=== PATIENT | female | born 1955 | race Caucasian/White ===

== ENCOUNTER → 2017-04-15 | Outpatient (REF) | payer BC ==
[~2017-04-15] MED LIST: LISI10TA4 PO; MULT1TAB10 PO
[2017-04-15 11:54] LABS: BASO # 0.1 K/mm3 (0.0-0.2); BASO % 0.8 % (0.0-1.0); EOS # 0.2 K/mm3 (0.0-0.50); EOS % 3.2 % (0.0-3.0); LARGE UNSTAINED CELL # 0.1 K/mm3 (0.0-0.4); LYMPH # 1.5 K/mm3 (1.5-4.5); LYMPH % 19.5 % (24.0-44.0); MEAN CORPUSCULAR HEMOGLOBIN 28.3 pg (27.0-33.0); MEAN CORPUSCULAR HGB CONC 32.6 g/dl (32.0-36.5); MEAN CORPUSCULAR VOLUME 86.8 fl (80.0-96.0); MONO # 0.4 K/mm3 (0.0-0.8); MONO % 5.9 % (0.0-5.0); NEUTROPHILS # 5.2 K/mm3 (1.8-7.7); NEUTROPHILS % 69.6 % (36.0-66.0); PLATELET COUNT, AUTOMATED 296 k/mm3 (150-450); RED CELL DISTRIBUTION WIDTH 13.6 % (11.5-14.5); WHITE BLOOD COUNT 7.4 K/mm3 (4.0-10.0)
[2017-04-15 12:23] LABS: ALBUMIN 3.5 GM/DL (3.2-5.2); ALBUMIN/GLOBULIN RATIO 1.09 (1.00-1.93); ALKALINE PHOSPHATASE 119 U/L (45-117); ALT/SGPT 17 U/L (12-78); ANION GAP 6 MEQ/L (8-16); AST/SGOT 12 U/L (15-37); BILIRUBIN,TOTAL 0.5 MG/DL (0.2-1.0); BLOOD UREA NITROGEN 21 MG/DL (7-18); CALCIUM LEVEL 8.9 MG/DL (8.8-10.2); CARBON DIOXIDE LEVEL 28 MEQ/L (21-32); CHLORIDE LEVEL 104 MEQ/L (98-107); CHOLESTEROL LEVEL 176 MG/DL (<200); CREATININE FOR GFR 0.68 MG/DL (0.55-1.02); FREE T4 1.35 NG/DL (0.76-1.46); GLOMERULAR FILTRATION RATE > 60.0 (>45); GLUCOSE, FASTING 83 MG/DL (80-110); POTASSIUM SERUM 4.8 MEQ/L (3.5-5.1); SODIUM LEVEL 138 MEQ/L (136-145); TOTAL PROTEIN 6.7 GM/DL (6.4-8.2); TRIGLYCERIDES LEVEL 47 MG/DL (<150)
== END ==
LOC: M SFHCADAM 07:46
PROVIDERS: ATTEND Family Medicine
DX: R60.9 Edema, unspecified (principal); Z00.00 Encounter for general adult medical examination without abnormal findings; E66.09 Other obesity due to excess calories

== ENCOUNTER → 2017-04-24 | Outpatient (CLI) | payer BC ==
--- NOTE | 2017-04-25 08:12 | REP ---
Clinical: Venous insufficiency with right lower extremity nonhealing ulcer . Technique: Dewey scale and color Doppler evaluation using linear high frequency transducer with reflux evaluation. Findings: Ultrasound examination of the right lower extremity deep venous structures from the common femoral vein to the popliteal vein demonstrates normal compressibility flow and wave patterns in response to respiration and augmentation. There is no evidence for deep venous thrombosis. Severe reflux is identified through the greater saphenous vein (GSV) from the level of the groin to the mid calf with multiple collateral perforating vessels including involving the distal femoral vein to distal greater saphenous vein. Reflux is also identified through the anterior accessory vein and common femoral vein extending along the posterior aspect of the thigh. Proximal GSV dilated to 15 mm with reflux duration 3.3 seconds. Mid GSV dilated to 9.8 mm with reflux duration 3.5 seconds. Distal GSV dilated to 11.0 mm with reflux duration of 5.1 seconds. Reflux noted involving the common femoral vein, anterior accessory vein, superficial femoral vein. Impression: No evidence for deep venous thrombosis. Significant reflux noted through the greater saphenous vein, as well as via anterior accessory vein, common femoral vein and superficial femoral veins. Signed by Dane Egan MD 04/25/2017 05:18 A
== END ==
LOC: M RAD 12:41
PROVIDERS: ATTEND Family Medicine
DX: L97.919 Non-pressure chronic ulcer of unspecified part of right lower leg with unspecified severity (principal); Z12.31 Encounter for screening mammogram for malignant neoplasm of breast

== ENCOUNTER → 2017-04-28 | Outpatient (CLI) | payer BC ==
--- NOTE | 2017-04-28 14:51 | REP ---
LEFT LOWER EXTREMITY DUPLEX DOPPLER VENOUS ULTRASOUND WITH EVALUATION FOR VENOUS REFLUX: Real-time compression and duplex Doppler interrogation of the left lower extremity deep vein system is performed. The left common femoral, superficial femoral and popliteal veins are fully compressible with transducer pressure and demonstrate normal spontaneous and phasic flow without evidence of deep venous thrombosis. Evaluation for venous reflux demonstrates reflux in the common femoral vein. There is an anterior accessory greater saphenous vein measuring 9 mm in diameter with reflux present with the duration of 1.4 seconds. There is reflux in the greater saphenous vein at the saphenofemoral junction with that vessel measuring 7 mm, duration of the reflux 7.2 cm. There is reflux in the greater saphenous vein at the mid thigh level where the vein measures 4 mm in diameter, duration of the reflux 6.9 seconds. There is reflux in the greater saphenous vein at the knee with the vessel measuring 3 mm in diameter, duration of the reflux 5.9 seconds. There is no reflux in the remaining superficial femoral or popliteal vein and no reflux in the lesser saphenous vein which measures 4 mm. Signed by Chip Dewey MD 04/29/2017 08:42 A
== END ==
LOC: M RAD 12:46
PROVIDERS: ATTEND Family Medicine
DX: L97.919 Non-pressure chronic ulcer of unspecified part of right lower leg with unspecified severity (principal); Z12.31 Encounter for screening mammogram for malignant neoplasm of breast

== ENCOUNTER → 2017-06-11 | Outpatient (CLI) | payer BC ==
[2017-06-11 12:21] LABS: MEAN CORPUSCULAR HEMOGLOBIN 28.5 pg (27.0-33.0); MEAN CORPUSCULAR HGB CONC 33.6 g/dl (32.0-36.5); MEAN CORPUSCULAR VOLUME 84.8 fl (80.0-96.0); RED CELL DISTRIBUTION WIDTH 13.9 % (11.5-14.5)
[2017-06-11 12:29] LABS: ANION GAP 7 MEQ/L (8-16); BLOOD UREA NITROGEN 15 MG/DL (7-18); CALCIUM LEVEL 8.9 MG/DL (8.8-10.2); CARBON DIOXIDE LEVEL 29 MEQ/L (21-32); CHLORIDE LEVEL 107 MEQ/L (98-107); CREATININE FOR GFR 0.68 MG/DL (0.55-1.02); GLOMERULAR FILTRATION RATE > 60.0 (>45); GLUCOSE, FASTING 93 MG/DL (80-110); POTASSIUM SERUM 4.6 MEQ/L (3.5-5.1); SODIUM LEVEL 143 MEQ/L (136-145)
== END ==
LOC: M LAB 11:20
PROVIDERS: ATTEND Surgery Vascular Surgery
DX: I70.239 Atherosclerosis of native arteries of right leg with ulceration of unspecified site (principal)

== ENCOUNTER → 2017-07-10 | Outpatient (CLI) | payer BC ==
--- NOTE | 2017-07-10 16:20 | REP ---
RIGHT LOWER EXTREMITY DOPPLER VENOUS ULTRASOUND: 07/10/2017: Comparison 04/24/2017. Clinical history: Venous insufficiency, postsurgical. Findings: Standard duplex techniques were utilized to evaluate the deep venous system and superficial vessels on the right lower extremity. There is a 2 x 1.1 x 0.8 cm reactive lymph node in the inguinal region. The deep venous system from the groin including the common femoral, superficial femoral and popliteal veins of the deep system were all fully compressible throughout their course with respiratory variation and augmented flow, color flow is patent throughout the greater saphenous vein is clotted from its junction with the common femoral vein to the knee which is expected post procedure. No thrombus extending into the deep system from the greater saphenous vein. Impression 1. No ultrasound evidence of DVT in the right lower extremity. 2. Greater saphenous vein is not thrombosed from the knee to the junction with the common femoral vein in the groin. Signed by Shashank Prabhakar MD 07/10/2017 04:28 P
== END ==
LOC: M RAD 08:17
PROVIDERS: ATTEND Surgery Vascular Surgery
DX: I87.2 Venous insufficiency (chronic) (peripheral) (principal)

== ENCOUNTER 2017-08-07 09:53 | Day surgery (SDC) | payer BC ==
[~2017-08-07] VITALS: Ht 162.6 cm; Wt 128.4 kg
[2017-08-07] MEDS ORDERED: LR 1,000 ML IV SCH ×2 (10:15→12:30)
[2017-08-07] MEDS ORDERED: LIDOCAINE 1% SDV 5 ML VIAL SC ONE (10:15)
[2017-08-07] MEDS ORDERED: LIDOCAINE W/EPINEPHRINE 1% 20ML VIAL As Ordered ONE (10:33)
[2017-08-07] MEDS ORDERED: LIDOCAINE 1% SDV INJ 30 ML VIAL As Ordered ONE (10:33)
[2017-08-07] MEDS ORDERED: ePHEDrine SULFATE 25 MG/5 ML(5MG/ML) SYRINGE As Ordered ONE (11:37)
[2017-08-07] MEDS ORDERED: PROPOFOL 500 MG/50 ML VIAL As Ordered ONE (11:37)
[2017-08-07] MEDS ORDERED: ONDANSETRON 4MG/2ML VIAL (J2405) As Ordered ONE ×2 (11:37→11:51)
[2017-08-07] MEDS ORDERED: MIDAZOLAM INJ 2 MG/2 ML VIAL (J2250) As Ordered ONE (11:37)
[2017-08-07] MEDS ORDERED: fentaNYL 100 MCG/2 ML INJECTION (J3010) As Ordered ONE (11:37)
[2017-08-07] MEDS ORDERED: dexameTHASONE 4 MG/ML 1ML VIAL (J1100) As Ordered ONE (11:51)
[2017-08-07] MEDS ORDERED: KETOROLAC 60 MG/2 ML VIAL (J1885) As Ordered ONE (11:51)
[2017-08-07] MEDS ORDERED: ONDANSETRON 4MG/2ML VIAL (J2405) IV PRN (12:30)
[2017-08-07] MEDS: PERCOCET 5MG/325MG TAB PO PRN ×2 (13:17→13:55)
[2017-08-07] MEDS ORDERED: PERCOCET 5MG/325MG TAB As Ordered ONE (13:51)
[2017-08-07 14:40] VITALS: BP 145/83
--- NOTE | 2017-09-11 14:17 | RO ---
DATE OF PROCEDURE: 08/07/2017 PREPROCEDURE DIAGNOSIS: Bilateral lower extremity swelling, pain and venous cellular cyst in the greater saphenous vein. POSTPROCEDURE DIAGNOSIS: Bilateral lower extremity swelling, pain and venous valvular insufficiency in the greater saphenous vein. PROCEDURE: Left greater saphenous vein radiofrequency ablation. SURGEON: Dr. Bree Malcolm. ENGRAVER WOOD: None. ANESTHESIA: Local monitored anesthesia care (MAC). ESTIMATED BLOOD LOSS: 50 mL IV FLUIDS: 700 mL. COMPLICATIONS: None. DRAINS: None. SPECIMENS: None. IMPLANTS: None. INDICATION: The patient is a 62-year-old female with bilateral lower extremity swelling, pain and venous valvular insufficiency in the greater saphenous vein. The patient will undergo a left greater saphenous vein radiofrequency ablation. Risks benefits and alternative treatment options were discussed with the patient. DESCRIPTION OF PROCEDURE: The patient was taken to the operating room and placed supine on the operating table. The left lower extremity was prepped and draped in the standard surgical fashion. Ultrasound was used to guide the cannulation of the left greater saphenous vein and below knee region. Afterwards the sheath was placed and a catheter placed 2 cm distal to the saphenofemoral junction after which was injected circumferentially around the greater saphenous vein and then the greater saphenous vein was ablated from 2 cm distal to the saphenofemoral junction to the entry site in the below knee region. The catheters and wires were removed. Dressings were then applied. The patient tolerated the procedure well. All instruments, sponge and needle counts were correct at the end of the case. There were no complications. Dr. Malcolm was present for and directed the entire case. The patient was transferred to the recovery room and subsequently discharged in stable condition.
== END 2017-08-07 14:42 | disposition home or self-care (01) ==
LOC: M SDC 09:53
PROVIDERS: ATTEND Surgery Vascular Surgery
DX: I87.2 Venous insufficiency (chronic) (peripheral) (principal); I83.811 Varicose veins of right lower extremity with pain; R60.0 Localized edema; I10 Essential (primary) hypertension; Z79.899 Other long term (current) drug therapy; Z78.0 Asymptomatic menopausal state
CPT/HCPCS: 36475; J1100; J1885; J2250; J2405; J3010

== ENCOUNTER → 2017-08-18 | Outpatient (CLI) | payer BC ==
--- NOTE | 2017-08-18 09:18 | REP ---
Clinical: Left extremity pain status post ablation . Technique: Dewey scale and color Doppler evaluation using linear high frequency transducer. Findings: Ultrasound examination of the left lower extremity deep venous structures from the common femoral vein to the popliteal vein demonstrates normal compressibility flow and wave patterns in response to respiration and augmentation. There is no evidence for deep venous thrombosis. Occlusive thrombus in the greater saphenous vein beginning approximately 1.2 cm from the greater saphenous vein/common femoral vein junction is consistent with the history of prior ablation therapy. Anterior accessory greater saphenous vein appears patent. Impression: No evidence for deep venous thrombosis. Signed by Dane Egan MD 08/18/2017 09:10 A
== END ==
LOC: M RAD 08:10
PROVIDERS: ATTEND Surgery Vascular Surgery
DX: I87.393 Chronic venous hypertension (idiopathic) with other complications of bilateral lower extremity (principal)

== ENCOUNTER 2021-04-02 04:52 | Emergency (ER) | payer BC ==
[~2021-04-02] VITALS: Ht 162.6 cm; Wt 138.4 kg
[~2021-04-02 04:52] MED LIST changes: +LISI10TA22 PO; -LISI10TA4 PO
[2021-04-02] MEDS ORDERED: MORPHINE 2 MG/ML 1ML VIAL (J2270) As Ordered ONE (05:49)
[2021-04-02] MEDS ORDERED: MORPHINE 2 MG/ML 1ML VIAL (J2270) IV ONE (05:55)
[2021-04-02] MEDS ORDERED: NS 1,000 ML IV SCH (06:00)
[2021-04-02] MEDS ORDERED: KETAMINE HCL 200 MG/20 ML VIAL IV ONE (06:00)
[2021-04-02] MEDS ORDERED: propofoL 200 MG/20 ML VIAL IV.PROC PRN (06:00)
--- NOTE | 2021-04-02 07:14 | REPVR ---
PROCEDURE INFORMATION: Exam: XR Right Humerus Exam date and time: 04/02/2021 5:39 AM Age: 66 years old Clinical indication: Pain; Shoulder; Right; Additional info: Injury TECHNIQUE: Imaging protocol: XR Right humerus. Views: 2 or more views. COMPARISON: No relevant prior studies available. FINDINGS: The dislocation of the right shoulder relative to the glenoid likely anterior. No acute fracture within the right clavicle, scapula or right humerus. IMPRESSION: Right shoulder anterior dislocation. No definite evidence of acute fracture within the right shoulder. Electronically signed by: Demetrio Barber On 04/02/2021 07:14:04 AM
--- NOTE | 2021-04-02 07:15 | REPVR ---
PROCEDURE INFORMATION: Exam: XR Right Shoulder Exam date and time: 04/02/2021 5:39 AM Age: 66 years old Clinical indication: Pain; Shoulder; Right; Additional info: Injury TECHNIQUE: Imaging protocol: XR Right shoulder. Views: 2 or more views. COMPARISON: No relevant prior studies available. FINDINGS: Anterior dislocation of the right humeral head relative to the glenoid. No acute fracture within the right clavicle, scapula or proximal humerus. IMPRESSION: Anterior dislocation of the right humeral head relative to the glenoid. No evidence of acute fracture. Electronically signed by: Demetrio Barber On 04/02/2021 07:14:59 AM
--- NOTE | 2021-04-02 07:16 | REPVR ---
PROCEDURE INFORMATION: Exam: XR Right Shoulder Exam date and time: 04/02/2021 6:25 AM Age: 66 years old Clinical indication: Pain; Shoulder; Right; Additional info: Dislocation TECHNIQUE: Imaging protocol: XR Right shoulder. Views: 1 view. COMPARISON: CR Shoulder, complete RIGHT 04/02/2021 5:15 AM FINDINGS: Single frontal view demonstrates interval reduction of previously seen anterior right shoulder dislocation. No definite evidence of fracture within the right clavicle, scapula or proximal humerus. IMPRESSION: Interval reduction of previously seen anterior right shoulder dislocation. Electronically signed by: Demetrio Barber On 04/02/2021 07:15:46 AM
[2021-04-02 07:59] VITALS: BP 147/74
== END 2021-04-02 08:21 | disposition home or self-care (01) ==
LOC: M ED 04:52
DX: S43.004A Unspecified dislocation of right shoulder joint, initial encounter (principal); W01.0XXA Fall on same level from slipping, tripping and stumbling without subsequent striking against object, initial encounter; Y92.018 Other place in single-family (private) house as the place of occurrence of the external cause
CPT/HCPCS: 23650; 73020; 73030; 73060; 93041; 94760; 96361; 96374; 99152; 99153; 99285; J2270

== ENCOUNTER → 2021-04-03 | Outpatient (CLI) | payer BC ==
--- NOTE | 2021-04-03 09:02 | REP ---
INDICATION: OTHER INSTABILITY. COMPARISON: 04/02/2021 TECHNIQUE: Axillary view of the right shoulder FINDINGS: Cortical irregularity and subtle blunting along the posterior aspect of the humeral head suggests prior Hill-Sachs deformity. The acromioclavicular joint and glenoid appear intact and relatively age-appropriate. IMPRESSION: Findings suggest prior Hill-Sachs deformity to the humeral head. <Electronically signed by Dane Egan > 04/03/21 [id number]
== END ==
LOC: M SOG 08:26
PROVIDERS: ATTEND Orthopaedic Surgery Sports Medicine
DX: M25.311 Other instability, right shoulder (principal)

== ENCOUNTER → 2021-05-15 | Outpatient (CLI) | payer BC ==
--- NOTE | 2021-05-15 09:29 | REP ---
INDICATION: SHOULDER INSTABILITY. COMPARISON: None. TECHNIQUE: Neutral, internal rotation, external rotation, axillary and Y-view of the right shoulder. FINDINGS: Age-related degenerative changes include subtle cortical irregularity and spurring at the acromioclavicular joint/acromion process as well as heterogeneous blunting to the calcified glenoid rim and flattening along the posterior margin of the humeral head which may reflect prior dislocation and Hill-Sachs deformity. The subacromial space appears somewhat decreased to on internal and external rotation views. Approximately 6.8 mm no periarticular calcifications or loose bodies identified. IMPRESSION: Degenerative changes as noted above. <Electronically signed by Dane Egan > 05/15/21 [id number]
== END ==
LOC: M SOG 08:57
PROVIDERS: ATTEND Orthopaedic Surgery Sports Medicine
DX: M25.311 Other instability, right shoulder (principal)

== ENCOUNTER → 2021-05-18 | Outpatient (CLI) | payer BC ==
--- NOTE | 2021-05-18 15:10 | REP ---
INDICATION: MASSIVE RCT. Patient relates a history of a fall 1 month ago. First time dislocation 6 weeks ago, now with pseudo paralysis of the shoulder. Assess for massive rotator cuff tear. COMPARISON: Comparison radiographs of the right shoulder are from May 15, 2021 and April 03, 2021. TECHNIQUE: Axial, oblique coronal, and oblique sagittal imaging planes utilized. T1 and T2 weighted scans are included with without fat saturation in the usual fashion. FINDINGS: There is a moderate to large glenohumeral joint effusion visible. There is a complete full-thickness retracted supraspinatus cuff tear with obliteration of the subacromial space on oblique coronal T1 weighted scans. There is mild inferolateral spurring of the acromion process. AC joint osteoarthritis and some AC joint fluid are seen. On axial 3D ROACH images, there is a low signal intensity structure in anterior and superficial to the biceps tendon/bony bicipital groove consistent with a 8 mm calcific deposit. There is tendinosis in the subscapularis tendon. Infraspinatus tendon appears intact. Biceps tendon effusion is seen. The tendon itself appears intact. There is less than optimal visualization of the superior labral cartilage. No posterior labral tear is seen. Question anterior labral cartilage tear. IMPRESSION: There is a somewhat retracted complete and large full-thickness supraspinatus cuff tear with resultant narrowing of the subacromial space. A moderate to large glenohumeral joint effusion is seen. Question anterior labral tear. Periarticular soft tissue calcifications suspected. AC joint osteoarthritis. <Electronically signed by Bharath Jackson > 05/18/21 [id number]
== END ==
LOC: M PLARAD 08:27
PROVIDERS: ATTEND Orthopaedic Surgery Sports Medicine
DX: M75.121 Complete rotator cuff tear or rupture of right shoulder, not specified as traumatic (principal); M25.311 Other instability, right shoulder

== ENCOUNTER → 2021-08-02 | Outpatient (REF) | payer BC ==
[2021-08-02 13:02] LABS: BASO # 0.1 10^3/uL (0.0-0.2); BASO % 0.7 % (0.0-1.0); EOS # 0.3 10^3/uL (0.0-0.5); EOS % 3.5 % (0.0-3.0); HEMOGLOBIN 13.2 g/dl (12.0-15.5); LYMPH # 1.8 10^3/uL (1.5-5.0); LYMPH % 24.7 % (24.0-44.0); MEAN CORPUSCULAR HEMOGLOBIN 26.6 pg (27.0-33.0); MEAN CORPUSCULAR HGB CONC 30.7 g/dl (32.0-36.5); MEAN CORPUSCULAR VOLUME 86.7 fl (80.0-96.0); MONO # 0.7 10^3/uL (0.0-0.8); MONO % 9.3 % (2.0-8.0); NEUTROPHILS # 4.4 10^3/uL (1.5-8.5); NEUTROPHILS % 61.5 % (36.0-66.0); PLATELET COUNT, AUTOMATED 303 10^3/uL (150-450); RED BLOOD COUNT 4.96 10^6/uL (4.00-5.40); WHITE BLOOD COUNT 7.1 10^3/uL (4.0-10.0)
[2021-08-02 14:27] LABS: ALBUMIN 3.2 GM/DL (3.2-5.2); ALT/SGPT 15 U/L (12-78); BILIRUBIN,TOTAL 0.5 MG/DL (0.2-1.0); BLOOD UREA NITROGEN 16 MG/DL (7-18); CALCIUM LEVEL 9.2 MG/DL (8.8-10.2); CARBON DIOXIDE LEVEL 29 MEQ/L (21-32); CHLORIDE LEVEL 108 MEQ/L (98-107); CHOLESTEROL LEVEL 204 MG/DL (<200); CREATININE FOR GFR 0.81 MG/DL (0.55-1.30); FREE T4 1.28 NG/DL (0.76-1.46); GLOMERULAR FILTRATION RATE > 60.0 (>45); GLUCOSE, FASTING 88 MG/DL (70-100); HDL CHOLESTEROL 80 MG/DL (>40); LDL CHOLESTEROL 113 MG/DL (<100); NON-HDL-C 124 MG/DL; POTASSIUM SERUM 4.9 MEQ/L (3.5-5.1); SODIUM LEVEL 142 MEQ/L (136-145); TOTAL PROTEIN 6.5 GM/DL (6.4-8.2); TRIGLYCERIDES LEVEL 55 MG/DL (<150)
== END ==
LOC: M SFHCADAM 07:58
PROVIDERS: ATTEND Family Medicine
DX: Z00.00 Encounter for general adult medical examination without abnormal findings (principal)

== ENCOUNTER → 2022-06-28 | Outpatient (CLI) | payer BC | LOC: M WHC 15:34 | PROVIDERS: ATTEND Family Medicine | DX: Z12.31 Encounter for screening mammogram for malignant neoplasm of breast (principal) ==

== ENCOUNTER → 2022-10-02 | Outpatient (REF) | payer BC | LOC: M SFHCADAM 13:00 | PROVIDERS: ATTEND Family Medicine | DX: R09.81 Nasal congestion (principal) ==

== ENCOUNTER → 2023-03-04 | Outpatient (REF) | payer BC ==
[2023-03-04 13:48] LABS: BASO # 0.1 10^3/uL (0.0-0.2); EOS # 0.2 10^3/uL (0.0-0.5); EOS % 3.6 % (0.0-3.0); HEMATOCRIT 41.7 % (36.0-47.0); HEMOGLOBIN 12.5 g/dl (12.0-15.5); LYMPH # 1.8 10^3/uL (1.5-5.0); LYMPH % 30.4 % (24.0-44.0); MEAN CORPUSCULAR HEMOGLOBIN 26.8 pg (27.0-33.0); MEAN CORPUSCULAR VOLUME 89.5 fl (80.0-96.0); MONO # 0.6 10^3/uL (0.0-0.8); MONO % 9.5 % (2.0-8.0); NEUTROPHILS # 3.2 10^3/uL (1.5-8.5); NEUTROPHILS % 55.2 % (36.0-66.0); PLATELET COUNT, AUTOMATED 334 10^3/uL (150-450); RED BLOOD COUNT 4.66 10^6/uL (4.00-5.40); WHITE BLOOD COUNT 5.8 10^3/uL (4.0-10.0)
[2023-03-04 13:50] LABS: FREE T4 1.06 NG/DL (0.89-1.76); THYROID STIMULATING HORMONE 1.837 uIU/ML (0.55-4.78)
[2023-03-04 13:51] LABS: ALBUMIN 3.2 G/DL (3.2-5.2); ALKALINE PHOSPHATASE 114 U/L (46-116); ALT/SGPT 12 U/L (7.0-40); AST/SGOT 12 U/L (<34); BILIRUBIN,TOTAL 0.4 MG/DL (0.3-1.2); BLOOD UREA NITROGEN 18 MG/DL (9-23); CALCIUM LEVEL 8.3 MG/DL (8.3-10.6); CARBON DIOXIDE LEVEL 31 MMOL/L (20-31); CHLORIDE LEVEL 106 MMOL/L (98-107); CHOLESTEROL LEVEL 176 MG/DL (<200); CHOLESTEROL RISK RATIO 2.43 (<5); CREATININE FOR GFR 0.73 MG/DL (0.55-1.30); GLOMERULAR FILTRATION RATE > 60.0 (>45); GLUCOSE, FASTING 86 MG/DL (74-106); HDL CHOLESTEROL 72.4 MG/DL (>40); LDL CHOLESTEROL 91.4 MG/DL (<100); NON-HDL-C 103.6 MG/DL; POTASSIUM SERUM 4.5 MMOL/L (3.5-5.1); SODIUM LEVEL 141 MMOL/L (136-145); TOTAL PROTEIN 5.9 G/DL (5.7-8.2); TRIGLYCERIDES LEVEL 61 MG/DL (<150)
== END ==
LOC: M SFHCADAM 07:33
PROVIDERS: ATTEND Family Medicine
DX: Z00.00 Encounter for general adult medical examination without abnormal findings (principal)

== ENCOUNTER → 2023-03-12 | Outpatient (CLI) | payer BC | LOC: M WHC 16:42 | PROVIDERS: ATTEND Family Medicine | DX: Z53.9 Procedure and treatment not carried out, unspecified reason (principal); Z12.31 Encounter for screening mammogram for malignant neoplasm of breast ==

== ENCOUNTER → 2023-03-13 | Outpatient (CLI) | payer BC | LOC: M ADAMS 14:59 | PROVIDERS: ATTEND Family Medicine | DX: R05.2 Subacute cough (principal); J98.11 Atelectasis; K44.9 Diaphragmatic hernia without obstruction or gangrene ==

== ENCOUNTER → 2023-07-18 | Outpatient (CLI) | payer BC | LOC: M WHC 11:52 | PROVIDERS: ATTEND Family Medicine | DX: Z12.31 Encounter for screening mammogram for malignant neoplasm of breast (principal) ==

== ENCOUNTER → 2024-04-20 | Outpatient (REF) | payer BC ==
[2024-04-20 12:58] LABS: BASO # 0.1 10^3/uL (0.0-0.2); BASO % 0.7 % (0.0-1.0); EOS # 0.2 10^3/uL (0.0-0.5); EOS % 2.6 % (0.0-3.0); HEMATOCRIT 39.4 % (36.0-47.0); HEMOGLOBIN 12.3 g/dl (12.0-15.5); LYMPH # 1.3 10^3/uL (1.5-5.0); LYMPH % 18.6 % (24.0-44.0); MEAN CORPUSCULAR HEMOGLOBIN 27.8 pg (27.0-33.0); MEAN CORPUSCULAR HGB CONC 31.2 g/dl (32.0-36.5); MEAN CORPUSCULAR VOLUME 88.9 fl (80.0-96.0); MONO # 0.9 10^3/uL (0.0-0.8); MONO % 13.6 % (2.0-8.0); NEUTROPHILS # 4.4 10^3/uL (1.5-8.5); NEUTROPHILS % 64.1 % (36.0-66.0); PLATELET COUNT, AUTOMATED 324 10^3/uL (150-450); RED BLOOD COUNT 4.43 10^6/uL (4.00-5.40); WHITE BLOOD COUNT 6.8 10^3/uL (4.0-10.0)
[2024-04-20 13:06] LABS: ALBUMIN 3.2 G/DL (3.2-5.2); ALKALINE PHOSPHATASE 99 U/L (46-116); ALT/SGPT 10 U/L (7.0-40); AST/SGOT 9 U/L (<34); BILIRUBIN,TOTAL 0.5 MG/DL (0.3-1.2); BLOOD UREA NITROGEN 18 MG/DL (9-23); CALCIUM LEVEL 8.8 MG/DL (8.3-10.6); CARBON DIOXIDE LEVEL 31 MMOL/L (20-31); CHLORIDE LEVEL 106 MMOL/L (98-107); CHOLESTEROL LEVEL 176 MG/DL (<200); CHOLESTEROL RISK RATIO 2.91 (<5); CREATININE FOR GFR 0.73 MG/DL (0.55-1.30); FREE T4 1.24 NG/DL (0.89-1.76); GLOMERULAR FILTRATION RATE > 60.0 (>45); GLUCOSE, FASTING 90 MG/DL (74-106); HDL CHOLESTEROL 60.3 MG/DL (>40); LDL CHOLESTEROL 102.7 MG/DL (<100); NON-HDL-C 115.7 MG/DL; POTASSIUM SERUM 4.5 MMOL/L (3.5-5.1); SODIUM LEVEL 141 MMOL/L (136-145); THYROID STIMULATING HORMONE 2.304 uIU/ML (0.55-4.78); TOTAL PROTEIN 5.8 G/DL (5.7-8.2); TRIGLYCERIDES LEVEL 65 MG/DL (<150)
== END ==
LOC: M SFHCADAM 07:43
PROVIDERS: ATTEND Family Medicine
DX: Z00.00 Encounter for general adult medical examination without abnormal findings (principal)

== ENCOUNTER → 2024-05-03 | Outpatient (CLI) | payer BC | LOC: M WHC 12:11 | PROVIDERS: ATTEND Family Medicine | DX: Z12.31 Encounter for screening mammogram for malignant neoplasm of breast (principal); Z13.820 Encounter for screening for osteoporosis; Z53.9 Procedure and treatment not carried out, unspecified reason ==

== ENCOUNTER → 2024-06-29 | Outpatient (CLI) | payer BC | LOC: M PLAIMG 14:09 | PROVIDERS: ATTEND Family Medicine | DX: M25.562 Pain in left knee (principal) ==

== ENCOUNTER → 2024-06-29 | Outpatient (CLI) | payer BC | LOC: M WHC 13:23 | PROVIDERS: ATTEND Family Medicine | DX: Z12.31 Encounter for screening mammogram for malignant neoplasm of breast (principal); Z13.820 Encounter for screening for osteoporosis ==

== ENCOUNTER → 2024-11-09 | Outpatient (CLI) | payer MEDICARE, BC | LOC: M ADAMS 10:45 | PROVIDERS: ATTEND Physician Assistant Medical | DX: M54.31 Sciatica, right side (principal); M43.16 Spondylolisthesis, lumbar region ==

== ENCOUNTER → 2024-12-15 | Outpatient (CLI) | payer MEDICARE | LOC: M PLAIMG 09:38 | PROVIDERS: ATTEND Chiropractor | DX: M99.03 Segmental and somatic dysfunction of lumbar region (principal) ==

== ENCOUNTER → 2025-07-04 | Outpatient (CLI) | payer MEDICARE | LOC: M WHC 09:19 | PROVIDERS: ATTEND Family Medicine | DX: Z12.31 Encounter for screening mammogram for malignant neoplasm of breast (principal) ==

== ENCOUNTER → 2025-09-08 | Outpatient (CLI) | payer MEDICARE | LOC: M ADAMS 08:40 | PROVIDERS: ATTEND Family Medicine | DX: S89.92XD Unspecified injury of left lower leg, subsequent encounter (principal) ==